=== PATIENT | male | born 1970 | race Caucasian/White ===

== ENCOUNTER 2017-09-14 16:40 | Emergency (ER) | payer OTHER ==
[~2017-09-14] VITALS: Ht 185.4 cm; Wt 88.9 kg
[~2017-09-14 16:40] MED LIST: ? B/P MED; AMBIEN; CELEXA20 MG PO; EFFEXOR; HYDROCODONE; LIPITOR 20 MG T20 M1 PO; LISINOPRIL20 MG PO; OMEPRAZOLE40 MG PO; PLAVIX 75 MG TA75 M1 PO
[2017-09-14] MEDS ORDERED: RESTORIL15 MG PO (16:57)
[2017-09-14] MEDS ORDERED: LISINOPRIL20 MG PO (16:57)
[2017-09-14] MEDS ORDERED: KEFLEX500 M1 PO (17:37)
[2017-09-14 18:20] VITALS: BP 136/90
== END 2017-09-14 18:21 | disposition home or self-care (01) ==
LOC: M.ERS 16:40
DX: S61.011A Laceration without foreign body of right thumb without damage to nail, initial encounter (principal); G43.909 Migraine, unspecified, not intractable, without status migrainosus; Z86.73 Personal history of transient ischemic attack (TIA), and cerebral infarction without residual deficits; Z88.5 Allergy status to narcotic agent; W22.8XXA Striking against or struck by other objects, initial encounter; Y93.89 Activity, other specified; Y92.89 Other specified places as the place of occurrence of the external cause; Y99.8 Other external cause status